=== PATIENT | male | born 2000 | race American Indian/Alaskan Native ===

== ENCOUNTER 2019-06-20 10:49 | Emergency (ER) | payer SELFPAY ==
--- NOTE | 2019-06-20 11:35 | EDM.PDOC ---
ED HPI GENERAL MEDICAL PROBLEM - General Chief Complaint: ENT Problem Stated Complaint: FEVER/THROAT HURTS Time Seen by Provider: 06/20/19 11:15 Source of Information: Reports: Patient History Limitations: Reports: No Limitations - History of Present Illness INITIAL COMMENTS - FREE TEXT/NARRATIVE: ED with c/o fever chills, sore throat cough headache since last shaniqua. Decreased appetite, no vomiting or diarrhea. Taking tylenol for fever. Generalized Pain Score (Numeric/FACES): 7 - Related Data Allergies Allergy/AdvReac Type Severity Reaction Status Date / Time amoxicillin Allergy Hives Verified 06/20/19 10:54 Home Meds: Home Meds . [No Known Home Meds] 06/20/19 [History] Past Medical History - Past Health History Medical/Surgical History: Denies Medical/Surgical History HEENT History: Reports: None Cardiovascular History: Reports: None Respiratory History: Reports: None Gastrointestinal History: Reports: None Genitourinary History: Reports: None Musculoskeletal History: Reports: None, Other (See Below) Other Musculoskeletal History: fractured right ulna and radius as child Neurological History: Reports: None Psychiatric History: Reports: None Endocrine/Metabolic History: Reports: None Hematologic History: Reports: None Immunologic History: Reports: None Oncologic (Cancer) History: Reports: None Dermatologic History: Reports: None - Infectious Disease History Infectious Disease History: Reports: None - Past Surgical History Head Surgeries/Procedures: Reports: None Social & Family History - Family History Family Medical History: Noncontributory - Tobacco Use Smoking Status *Q: Current Every Day Smoker Years of Tobacco use: 2 Packs/Tins Daily: 1 - Caffeine Use Caffeine Use: Reports: Coffee - Recreational Drug Use Recreational Drug Use: No ED ROS ENT - Review of Systems Review Of Systems: Comprehensive ROS is negative, except as noted in HPI. ED EXAM, ENT - Physical Exam Exam: See Below Exam Limited By: No Limitations General Appearance: Alert, Moderate Distress Eye Exam: Bilateral Eye: EOMI, PERRL Ears: Normal External Exam, Hearing Grossly Normal, Normal TMs Nose: Normal Inspection Mouth/Throat: Normal Inspection. No: Normal Lips (dry) Head: Atraumatic, Normocephalic Neck: Normal Inspection, Full Range of Motion Respiratory/Chest: No Respiratory Distress, Lungs Clear, Normal Breath Sounds Cardiovascular: Normal Peripheral Pulses, Regular Rate, Rhythm GI/Abdominal: Normal Bowel Sounds Back: Normal Inspection, Full Range of Motion Extremities: Normal Range of Motion Neurological: Alert, Oriented, Normal Cognition Psychiatric: Normal Affect, Normal Mood Skin: Warm, Dry, Intact, Normal Color Course - Vital Signs Last Recorded V/S: Last Vital Signs Temp 99.2 F 06/20/19 10:58 Pulse 110 H 06/20/19 10:58 Resp 16 06/20/19 10:58 BP 115/68 06/20/19 10:58 Pulse Ox 97 06/20/19 10:58 Departure - Departure Time of Disposition: 11:46 Disposition: Home, Self-Care 01 Condition: Good Clinical Impression: Influenza - Discharge Information *PRESCRIPTION DRUG MONITORING PROGRAM REVIEWED*: No *COPY OF PRESCRIPTION DRUG MONITORING REPORT IN PATIENT JOSE: No Instructions: Influenza, Adult Forms: ED Department Discharge Additional Instructions: tamiflu 75mg one twice daily alternate tylenol 650mg and ibuprofen 600mg every 4 hours as needed for fever/ body aches rest humidification good hand washing cover face with coughing limit exposure to young old and those with poor immune systems Sepsis Event Note - Evaluation Sepsis Screening Result: No Definite Risk - Focused Exam Date Exam was Performed: 06/22/19 Time Exam was Performed: 23:47
== END 2019-06-20 11:53 | disposition home or self-care (01) ==
LOC: DL.ED 10:49
DX: J11.1 Influenza due to unidentified influenza virus with other respiratory manifestations (principal); F17.210 Nicotine dependence, cigarettes, uncomplicated; Z88.0 Allergy status to penicillin
CPT/HCPCS: 87081; 87430; 87804; 99283

== ENCOUNTER 2019-06-28 16:58 | Emergency (ER) | payer SELFPAY ==
[2019-06-28] MEDS ORDERED: Albuterol/Ipratropium 3.0-0.5 MG/3 ML Neb Soln NEB ONE (19:15)
--- NOTE | 2019-06-28 19:23 | EDM.PDOC ---
ED HPI GENERAL MEDICAL PROBLEM - General Chief Complaint: Respiratory Problem Stated Complaint: COUGH, FLU B Time Seen by Provider: 06/28/19 19:19 Source of Information: Reports: Patient History Limitations: Reports: No Limitations - History of Present Illness INITIAL COMMENTS - FREE TEXT/NARRATIVE: sick since Dx with influ B, was Tx with tamiflu but still not totally better, still congested and coughing, thinks might have pneumonia. - Related Data Allergies Allergy/AdvReac Type Severity Reaction Status Date / Time amoxicillin Allergy Hives Verified 06/28/19 18:08 Home Meds: Home Meds . [No Known Home Meds] 06/20/19 [History] Past Medical History - Past Health History Medical/Surgical History: Denies Medical/Surgical History HEENT History: Reports: None, Impaired Vision Other HEENT History: wears glasses Cardiovascular History: Reports: None Respiratory History: Reports: None Gastrointestinal History: Reports: None Genitourinary History: Reports: None Musculoskeletal History: Reports: None, Other (See Below) Other Musculoskeletal History: fractured right ulna and radius as child Neurological History: Reports: None Psychiatric History: Reports: None Endocrine/Metabolic History: Reports: None Hematologic History: Reports: None Immunologic History: Reports: None Oncologic (Cancer) History: Reports: None Dermatologic History: Reports: None - Infectious Disease History Infectious Disease History: Reports: None - Past Surgical History Head Surgeries/Procedures: Reports: None Social & Family History - Family History Family Medical History: Noncontributory - Tobacco Use Smoking Status *Q: Current Every Day Smoker Years of Tobacco use: 1 Packs/Tins Daily: 0.5 Second Hand Smoke Exposure: No - Caffeine Use Caffeine Use: Reports: Soda - Recreational Drug Use Recreational Drug Use: No ED ROS GENERAL - Review of Systems Review Of Systems: Comprehensive ROS is negative, except as noted in HPI. ED EXAM, GENERAL - Physical Exam Exam: See Below Exam Limited By: No Limitations General Appearance: Alert, WD/WN, Mild Distress, Other (cough spasms) Ears: Normal External Exam, Normal Canal, Hearing Grossly Normal Throat/Mouth: Normal Voice, No Airway Compromise Head: Atraumatic Neck: Non-Tender, Full Range of Motion Respiratory/Chest: No Respiratory Distress, No Accessory Muscle Use, Rhonchi, Wheezing. No: Decreased Breath Sounds Cardiovascular: Regular Rate, Rhythm GI/Abdominal: Soft, Non-Tender Neurological: Alert, Oriented, Normal Cognition, Normal Gait, No Motor/Sensory Deficits Psychiatric: Flat Affect Skin Exam: Warm, Dry, Normal Color Lymphatic: No Adenopathy Course - Vital Signs Last Recorded V/S: Last Vital Signs Temp 36.5 C 06/28/19 18:02 Pulse 72 06/28/19 18:02 Resp 16 06/28/19 18:02 BP 123/76 06/28/19 18:02 Pulse Ox 100 06/28/19 18:02 - Orders/Labs/Meds Orders: Active Orders 24 hr Category Date Time Status RT Aerosol Therapy [RC] ASDIRECTED Care 06/28/19 19:15 Active Chest 2V [CR] Urgent Exams 06/28/19 18:18 Taken Meds: Medications Discontinued Medications Generic Name Dose Route Start Last Admin Trade Name Freq PRN Reason Stop Dose Admin Albuterol/Ipratropium 3 ml 06/28/19 19:15 06/28/19 19:19 Duoneb 3.0-0.5 Mg/3 Ml NEB 06/28/19 19:16 3 ml ONETIME ONE Administration - Re-Assessments/Exams Free Text/Narrative Re-Assessment/Exam: 06/28/19 19:21 results discussed with pt who is feeling better s/p duo Departure - Departure Time of Disposition: 19:35 Disposition: Home, Self-Care 01 Condition: Good Clinical Impression: Bronchospasm with bronchitis, acute - Discharge Information Instructions: Acute Bronchitis, Adult, [id number] Referrals: PCP,Karlobtain [Primary Care Provider] - Forms: ED Department Discharge Additional Instructions: 1) take neb treatments 3 times daily for cough 2) drink lots of liquids 3) don't sleep flat at night 4) follow up at clinic rx given; albuterol 2.5mg solution tid prn albuterol inhaler tid prn Sepsis Event Note - Evaluation Sepsis Screening Result: No Definite Risk - Focused Exam Date Exam was Performed: 06/29/19 Time Exam was Performed: 18:00 - My Orders Last 24 Hours: My Active Orders 06/28/19 18:18 Chest 2V [CR] Urgent 06/28/19 19:15 RT Aerosol Therapy [RC] ASDIRECTED - Assessment/Plan Last 24 Hours: My Active Orders 06/28/19 18:18 Chest 2V [CR] Urgent 06/28/19 19:15 RT Aerosol Therapy [RC] ASDIRECTED
== END 2019-06-28 19:37 | disposition home or self-care (01) ==
LOC: DL.ED 16:58
DX: J20.9 Acute bronchitis, unspecified (principal); F17.210 Nicotine dependence, cigarettes, uncomplicated; Z88.1 Allergy status to other antibiotic agents
CPT/HCPCS: 71046; 99283; 99283-25; J7620-GY

== ENCOUNTER 2021-04-25 09:28 | Emergency (ER) | payer SELFPAY ==
--- NOTE | 2021-04-25 09:48 | EDM.PDOC ---
ED HPI GENERAL MEDICAL PROBLEM - General Chief Complaint: Back Pain or Injury Stated Complaint: BACK PAIN BETWEEN SHOULDER BLADES Time Seen by Provider: 04/25/21 09:35 Source of Information: Reports: Patient, RN, RN Notes Reviewed History Limitations: Reports: No Limitations - History of Present Illness INITIAL COMMENTS - FREE TEXT/NARRATIVE: Pt presents to ER with c/o deep sharp pain at left lateral chest wall up around to the left shoulder blade area. The pain began yesterday without injury, or any known cause. Pt admits he felt a "little bit sick" for a few days prior to the onset of symptoms, with mild cough. Denies sore throat, fever, chills, or shortness of breath. Pt states the pain occurs with breathing, especially deep breaths, and with some movement of the left shoulder and torso. Onset: Gradual Duration: Constant Location: Reports: Chest Quality: Reports: Sharp Severity: Moderate Improves with: Reports: Immobilization Worsens with: Reports: Breathing, Movement Associated Symptoms: Reports: No Other Symptoms Upper Mid-Posterior Back Pain Score (Numeric/FACES): 5 - Related Data Allergies Allergy/AdvReac Type Severity Reaction Status Date / Time amoxicillin Allergy Hives Verified 04/25/21 09:47 Home Meds: Home Meds . [No Known Home Meds] 06/20/19 [History] Past Medical History - Past Health History Medical/Surgical History: Denies Medical/Surgical History HEENT History: Reports: None, Impaired Vision Other HEENT History: wears glasses Cardiovascular History: Reports: None Respiratory History: Reports: None Gastrointestinal History: Reports: None Genitourinary History: Reports: None Musculoskeletal History: Reports: None, Other (See Below) Other Musculoskeletal History: fractured right ulna and radius as child Neurological History: Reports: None Psychiatric History: Reports: None Endocrine/Metabolic History: Reports: None Hematologic History: Reports: None Immunologic History: Reports: None Oncologic (Cancer) History: Reports: None Dermatologic History: Reports: None - Infectious Disease History Infectious Disease History: Reports: None - Past Surgical History Head Surgeries/Procedures: Reports: None Social & Family History - Family History Family Medical History: No Pertinent Family History - Caffeine Use Caffeine Use: Reports: Soda - Living Situation & Occupation Living situation: Reports: with Family ED ROS GENERAL - Review of Systems Review Of Systems: Comprehensive ROS is negative, except as noted in HPI. ED EXAM, UPPER BACK/NECK PAIN - Physical Exam Exam: See Below Exam Limited By: No Limitations General Appearance: Alert, WD/WN, No Apparent Distress Eye Exam: Bilateral Eye: Normal Inspection Nose Exam: Normal Inspection, Normal Mucousa, No Blood Throat/Mouth Exam: Normal Inspection, Normal Lips, Normal Teeth, Normal Gums, Normal Oropharynx, Normal Voice, No Airway Compromise Head Exam: Atraumatic, Normocephalic Neck Exam: Non-Tender, Full Range of Motion, Normal Alignment, Normal Inspection Cardiovascular/Respiratory: Regular Rate, Rhythm, No M/R/G, Normal Peripheral Pulses, No JVD, Normal Breath Sounds, No Respiratory Distress, Other (Pleuritic pain with deep breathing, no reproduced by palpation or percussion). No: Rales, Rhonchi, Accessory Muscle uUe, Wheezing GI/Abdominal: Normal Bowel Sounds, Soft, Non-Tender, No Organomegaly, No Distention, No Abnormal Bruit, No Mass Back Exam: Full Range of Motion. No: CVA Tenderness (L), CVA Tenderness (R), Paraspinal Tenderness, Vertebral Tenderness Extremities: Normal Inspection, Normal Range of Motion, Non-Tender, No Pedal Edema, Normal Capillary Refill Neurologic: environmental epidemiologist II-XII nml As Tested, No Motor/Sensory Deficits, Alert, Normal Mood/Affect, Oriented x 3 Psychiatric: Normal Affect, Normal Mood Skin Exam: Normal Color, Warm/Dry Lymphatic: No Adenopathy Course - Vital Signs Last Recorded V/S: Last Vital Signs Temp 98.5 F 04/25/21 09:39 Pulse 52 L 04/25/21 09:39 Resp 16 04/25/21 09:39 BP 134/73 04/25/21 09:39 Pulse Ox 98 04/25/21 09:39 - Orders/Labs/Meds Orders: Active Orders 24 hr Category Date Time Status Chest 2V [CR] Stat Exams 04/25/21 09:38 Ordered Isolation [COMM] Routine Oth 04/25/21 09:39 Active - Radiology Interpretation Free Text/Narrative:: XR Chest: No focal consolidation, see Rad. report. Departure - Departure Time of Disposition: 10:09 Disposition: Home, Self-Care 01 Condition: Good Clinical Impression: Pleurisy without effusion - Discharge Information *PRESCRIPTION DRUG MONITORING PROGRAM REVIEWED*: Not Applicable *COPY OF PRESCRIPTION DRUG MONITORING REPORT IN PATIENT JOSE: Not Applicable Instructions: Pleurisy, Dxdt-nd-Sewy Forms: ED Department Discharge Additional Instructions: Rx: Prednisone 20mg Drink plenty of water. Follow up in clinic if not improving in 5 days. Sepsis Event Note (ED) - Focused Exam Vital Signs: Vital Signs Temp Pulse Resp BP Pulse Ox 04/25/21 09:39 98.5 F 52 L 16 134/73 98 - My Orders Last 24 Hours: My Active Orders 04/25/21 09:38 Chest 2V [CR] Stat 04/25/21 09:39 Isolation [COMM] Routine - Assessment/Plan Last 24 Hours: My Active Orders 04/25/21 09:38 Chest 2V [CR] Stat 04/25/21 09:39 Isolation [COMM] Routine
--- NOTE | 2021-04-25 11:59 | CR ---
EXAMINATION: Chest 2V SEX: Male AGE: 20 years CLINICAL HISTORY: 20-year-old male with pleuritic left chest pain. No known trauma. Comparison CXR 28 June 2019. Interpretation: Negative exam. 1. Bony thorax unremarkable. No sign of rib fracture, underlying lung contusion, atelectasis, pleural effusion or pneumothorax. 2. Normal cardiac silhouette (size and configuration). No pulmonary vascular congestion, cephalization of flow, alveolar edema or dependent pleural effusion. 3. No lung mass or hilar/mediastinal lymphadenopathy. Normal midline tracheal bronchial airway. 4. No alveolar infiltrate, air bronchograms, or peripheral "groundglass" interstitial lung densities. 5. No pneumothorax or pneumomediastinum. No free subdiaphragmatic air. CONCLUSION: No acute new cardiopulmonary abnormality since 28 June 2019 CXR.
== END 2021-04-25 10:26 | disposition home or self-care (01) ==
LOC: DL.ED 09:28
DX: R09.1 Pleurisy (principal); Z88.0 Allergy status to penicillin
CPT/HCPCS: 71046; 87804; 99284-25